=== PATIENT | male | born 1985 | race Caucasian/White ===

== ENCOUNTER 2017-08-28 09:38 | Emergency (ER) | payer OTHER ==
[~2017-08-28] VITALS: Ht 185.4 cm; Wt 63.5 kg
[~2017-08-28 09:38] MED LIST: ACCUNEB SO1.25 MG/1; ACETAMINOPHEN; ACETAMINOPHEN325 M1 PO; ADVIL200 MG PO; ALBUTEROL INHAL17 GM IH; AMBIEN 5 MG TABL5 M1 PO; AMITRIPTYLINE H25 M2 PO; AMITRIPTYLINE H50 M2; AMITRIPTYLINE H50 M2 GT; AMOXICILLIN500 M1 PO; AMOXICILLIN875 MG PO; BACTROBAN15 GM; BENTYL20 MG PO; CARISOPRODOL 3350 MG PO; CLARITIN10 MG PO; CLEOCIN HCL300 MG PO; COQ10 SG 100 S1 EACH PO; CREON 10 CAPSUL1 CA1 PO; DILAUDID2 MG PO; DOXYCYCLINE 10100 M1; FLONASE 0.05%50 MCG NS; HYDROCODONE-AP1 EAC6 PO; IBUPROFEN 800800 M1 PO; KEFLEX500 MG PO; LORTAB 5 MG/5001 TA1 PO; MIRTAZAPINE15 MG PO; NOHOMEMEDICATIONS; NORCO 5-325 TA1 EACH PO; OXYCODONE-ACET1 EACH PO; OXYIR5 MG PO; PENICILLIN VK250 MG PO; PERCOCET 10-321 EACH; PERCOCET 5-3251 EACH; PERCOCET 5-3251 EACH PO; PERCOCET 7.5-31 EACH PO; PHENADOZ12.5 MG RC; PHENERGAN 25 MG25 M1; PHENERGAN 25 MG25 M1 PO; PHENERGAN 25 MG25 M1 RECTAL; PRILOSEC 20 MG20 MG; PRILOSEC 20 MG20 MG PO; PROMETHAZINE12.5 M1 PO; TRAMADOL 50 MG50 MG PO; ULTRAM 50MG TAB50 MG; ULTRAM 50MG TAB50 MG PO; VICODIN 5-5001 EACH PO; XANAX 0.25 MG0.25 MG PO; XANAX 0.5 MG0.5 M1 PO; XANAX 1 MG TABLE1 MG PO; ZOFRAN 4 MG ORAL4 MG PO; ZOFRAN ODT4 MG DISSOLVE; ZOFRAN ODT4 MG PO; ZOFRAN4 MG PO; ZPAK PO
[2017-08-28 10:04] LABS: ABSOLUTE LYMPHOCYTES 1.3 thou/uL (0.8-5.3); ABSOLUTE MONOCYTES 0.4 thou/uL (0.0-1.2); ABSOLUTE NEUTROPHILS 3.7 thou/uL (1.6-8.1); BASOPHILS 0.8 %; EOSINOPHILS 0.5 %; HEMATOCRIT 42.6 % (42.0-52.0); HEMOGLOBIN 14.7 gm/dL (14.0-18.0); LYMPHOCYTES 23.5 %; MCH 32.2 pg (26.0-34.0); MCHC 34.4 g/dL (28.0-37.0); MCV 93.5 fL (80.0-100.0); MONOCYTES 8.1 %; MPV 7.7 fl. (7.2-11.1); NUCLEATED RBCS 0 /100WBC; PLATELET COUNT* 249 thou/uL (150-400); POLYS 67.1 %; RBC 4.56 mil/uL (4.50-6.00); RDW-CV 13.5 % (10.5-14.5); WBC 5.5 thou/uL (4.0-11.0)
[2017-08-28 10:11] LABS: CALCIUM 8.8 mg/dL (8.5-10.1); CREATININE 0.9 mg/dL (0.6-1.3); POTASSIUM 3.3 mmol/L (3.5-5.1)
[2017-08-28 10:16] LABS: ALBUMIN 4.1 g/dL (3.4-5.0); TOTAL PROTEIN 7.3 g/dL (6.4-8.2)
[2017-08-28 10:40] VITALS: BP 137/85
== END 2017-08-28 10:42 | disposition home or self-care (01) ==
LOC: M.ERS 09:38
PROVIDERS: Family Medicine
DX: R10.84 Generalized abdominal pain (principal); R11.2 Nausea with vomiting, unspecified; F17.210 Nicotine dependence, cigarettes, uncomplicated; Z88.2 Allergy status to sulfonamides; Z88.5 Allergy status to narcotic agent

== ENCOUNTER 2019-03-13 13:48 | Emergency (ER) | payer OTHER ==
[~2019-03-13] VITALS: Ht 185.4 cm; Wt 70.3 kg
[2019-03-13 14:00] LABS: URINE COLOR DARK YELLOW
[2019-03-13 14:12] LABS: ICTOTEST (BILI CONFIRMATORY) Negative (Negative); URINE BILIRUBIN 1+ (Negative); URINE BLOOD NEGATIVE (Negative); URINE CLARITY CLEAR; URINE GLUCOSE-RANDOM NEGATIVE (Negative); URINE KETONES NEGATIVE (Negative); URINE LEUKOCYTES-REFLEX NEGATIVE (Negative); URINE NITRITE-REFLEX NEGATIVE (Negative); URINE PROTEIN TRACE (Negative)
[2019-03-13 14:47] LABS: ABSOLUTE LYMPHOCYTES 2.1 thou/uL (0.8-5.3); ABSOLUTE MONOCYTES 0.5 thou/uL (0.0-1.2); ABSOLUTE NEUTROPHILS 2.3 thou/uL (1.6-8.1); BASOPHILS 0.6 %; EOSINOPHILS 0.8 %; HEMOGLOBIN 14.3 gm/dL (14.0-18.0); LYMPHOCYTES 42.3 %; MCHC 34.7 g/dL (28.0-37.0); MCV 92.2 fL (80.0-100.0); MONOCYTES 10.2 %; NUCLEATED RBCS 0 /100WBC; PLATELET COUNT* 182 thou/uL (150-400); POLYS 46.1 %; RBC 4.45 mil/uL (4.50-6.00); RDW-CV 12.9 % (10.5-14.5)
[2019-03-13 14:49] LABS: CALCIUM 8.8 mg/dL (8.5-10.1); CREATININE 0.7 mg/dL (0.6-1.3); POTASSIUM 3.5 mmol/L (3.5-5.1)
[2019-03-13 15:23] LABS: ALBUMIN 4.1 g/dL (3.4-5.0); DIRECT BILIRUBIN 0.4 mg/dL (<0.1-0.3); TOTAL BILIRUBIN 2.1 mg/dL (<0.1-1.0); TOTAL PROTEIN 7.1 g/dL (6.4-8.2)
[2019-03-13 15:32] VITALS: BP 120/57
== END 2019-03-13 15:35 | disposition home or self-care (01) ==
LOC: M.ERS 13:48
PROVIDERS: Nurse Practitioner
DX: R31.9 Hematuria, unspecified (principal); R94.5 Abnormal results of liver function studies; F17.210 Nicotine dependence, cigarettes, uncomplicated; Z88.5 Allergy status to narcotic agent; Z88.2 Allergy status to sulfonamides